=== PATIENT | female | born 1990 | race African-American/Black ===

== ENCOUNTER 2016-08-26 12:15 | Inpatient (IN) ==
[2016-08-26] MEDS ORDERED: ONDANSETRON 4 MG/2 ML VIAL IV PRN ×2 (12:32→21:52)
[2016-08-26] MEDS ORDERED: BUTORPHANOL 2 MG/ML VIAL IV PRN (12:32)
[2016-08-26] MEDS ORDERED: MEPERIDINE 50 MG/1 ML VIAL IV PRN (12:32)
[2016-08-26] MEDS: LACTATED RINGERS 1,000 ML IV SCH ×2 (12:45→15:20)
[2016-08-26 12:52] LABS: Basophils % 0.4 % (0.0-0.8); Hematocrit 38.4 VOL% (35.7-47.0); Hemoglobin 12.6 GM/DL (12.0-16.0); Immature Granulocytes % 0.7 %; Immature Granulocytes Absolute 0.05 #; Lymphocytes # 2.4 10*3/uL (1.4-4.0); Lymphocytes % 31.6 % (21.3-54.2); Mean Corpuscular HGB Conc 32.8 GM/DL (32-36); Mean Corpuscular Hemoglobin 30 PG (27-34); Mean Corpuscular Volume 91.4 FL (87-102); Mean Platelet Volume 13.1 FL (9.6-12.0); Monocytes # 0.8 10*3/uL (0.11-0.8); Monocytes % 10.4 % (1.7-12.7); Neutrophils # 4.3 10*3/uL (1.4-7.4); Neutrophils % 56.9 % (38.7-73.9); Platelet Count 141 T/CUMM (130-400); Red Cell Distribution Width 15.5 % (9.3-17.3); White Blood Count 7.5 T/CUMM (4-12)
[2016-08-26 13:04] LABS: INR 0.9; PT Patient Result 9.7 SECS; Partial Thromboplastin Time 32.8 SECS (0-40)
[2016-08-26 13:31] LABS: Alanine Aminotransferase 20 U/L (13-56); Albumin 2.2 G/DL (3.4-5.0); Alkaline Phosphatase 252 U/L (45-117); Aspartate Amino Transferase 30 U/L (0-37); Bilirubin,Total < 0.39 MG/DL (0.2-1.0); Blood Urea Nitrogen 9 MG/DL (7-18); Calcium 8.6 MG/DL (8.5-10.1); Glucose 68 MG/DL (74-106); Osmolality,Calculated 284.7 MOS/KG (273-304); Potassium 4.9 MMOL/L (3.5-5.1); Sodium 145 MMOL/L (136-145); Total Protein 5.9 G/DL (6.4-8.3)
[2016-08-26 13:41] LABS: Apearance,Urine CLEAR (Clear); Bacteria,Urine Occasional /HPF (Few); Bilirubin,Urine Negative (Negative); Blood, Urine Small mg/dL (Negative); Glucose,Urine (UA) Negative (Negative); Hyaline Casts,Urine 3 /LPF (0-3); Ketones,Urine Negative (Negative); Nitrite,Urine Negative (Negative); Protein,Urine 100 MG/DL; RBC,Urine <1 /HPF (0-4); Squamous Epithelial Cell,Urine Occasional /HPF (0-10); Urine Color Straw (Yellow); Urine Specific Gravity 1.003 (1.001-1.035); Urine Urobilinogen < 2.0 EU/DL (0.2-1.0); WBC,Urine 1 /HPF (0-6)
[2016-08-26] MEDS ORDERED: AMPICILLIN INJ 2,000 MG in SODIUM CHLORIDE 0.9% 100 ML IV ONE (13:45)
[2016-08-26] MEDS: hydrALAZINE 20 MG/1 ML VIAL IV SCH ×2 (13:54→14:10)
[2016-08-26] MEDS ORDERED: FAMOTIDINE 20 MG/2 ML VIAL IV ONE (13:59)
[2016-08-26] MEDS ORDERED: CITRIC ACID/SODIUM CITRATE 30 ML UDCUP PO ONE (13:59)
[2016-08-26] MEDS ORDERED: PROMETHAZINE 25 MG/1 ML VIAL IM ONE (13:59)
[2016-08-26] MEDS ORDERED: ONDANSETRON 4 MG/2 ML VIAL IV ONE (13:59)
[2016-08-26] MEDS ORDERED: diphenhydrAMINE 50 MG/1 ML VIAL IV PRN (13:59)
[2016-08-26] MEDS ORDERED: fentaNYL 2 MCG/ROPIV 0.2% EPID 150 ML EPIDURAL SCH (13:59)
[2016-08-26] MEDS ORDERED: hydrOXYzine HCL 25 MG/1 ML VIAL IM PRN (13:59)
[2016-08-26] MEDS ORDERED: ePHEDrine 50 MG/ML AMP IV PRN (13:59)
[2016-08-26] MEDS ORDERED: OXYTOCIN/LR 20 UNIT/1,000 ML BAG IV SCH (14:00)
[2016-08-26] MEDS ORDERED: ePHEDrine 50 MG/ML AMP ONE (15:14)
--- NOTE | 2016-08-26 17:11 | OB/GYN History & Physical ---
History of Present Illness Chief complaint: In for SROM and preeclampsia History of present illness: Ms. Taveras is a 26 year old female who is a primigravida. Her ELIZABETH is 09/23/16 for an estimated gestational age of 36 weeks. The patient presented to the labor department after visit for her routine appointment. At that appointment the patient was found to be preeclamptic with 2-3+ edema and 3+ protein in her urine. She was also complaining of leakage of fluid. Upon exam the patient was noted to be 3 cm dilated with leakage of fluid noted. The patient was sent to the labor department for management of PIH and spontaneous rupture membranes at 36 weeks. The risk and benefits of been thoroughly discussed with this patient significant other and plan care has been discussed with Dr. Thompson in all parties are in agreement with plan. The patient received her care at the [facility] she had an episode of missed appointments due to some insurance problems, but after that was resolved the patient resumed routine care and accidents at this point her course was uneventful. Home Medications Medication Instructions Recorded Confirmed Type Multivitamin () [ 1 tablet PO DAILY 08/26/16 08/26/16 History Vitamin] Allergies Allergy/AdvReac Type Severity Reaction Status Date / Time No Known Allergies Allergy Verified 02/14/15 09:03 12 point system: reviewed and no additional remarkable complaints except as stated (SROM, proteinuria, pitting edema) Medical,Surgical,& Family Hx - Medical History Medical History: noncontributory Reproductive: History of: Sexually Transmitted Disorders (CHLYMDYIA) No history of: Ectopic , Complication - Surgical History Reproductive Surgeries: Patient denies;: Breast Surgery, Section, Dilation and Curettage, Gynecologic Surgery, Hysterectomy, Tubal Ligation Orthopedic Surgeries: Surgical HX of;: Orthopedic Surgery (Knee surgery) - Family History Family History: Reports;: Family Hypertension (MOTHER AND SISTERS) - Social History Smoking Status: Never smoker Frequency of Alcohol Use: None Type of Drug Use: None Marital Status: Single Lives With:: Significant Other Functional capacity: independent ambulation 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
[2016-08-26 17:54] LABS: Apearance,Urine CLEAR (Clear); Bilirubin,Urine Negative (Negative); Blood, Urine Negative (Negative); Glucose,Urine (UA) Negative (Negative); Hyaline Casts,Urine 1 /LPF (0-3); Ketones,Urine Negative (Negative); Nitrite,Urine Negative (Negative); Protein,Urine 100 MG/DL; RBC,Urine 2 /HPF (0-4); Urine Color Yellow (Yellow); Urine Specific Gravity 1.006 (1.001-1.035); Urine Urobilinogen < 2.0 EU/DL (0.2-1.0); WBC,Urine 1 /HPF (0-6)
[2016-08-26] MEDS ORDERED: MAGNESIUM SULF RIDER 4 GM in PREMIX 1 EACH IV ONE (18:27)
[2016-08-26] MEDS ORDERED: MAGNESIUM SULF DRIP 40 GM/1,000 ML ML IV ONE (18:28)
[2016-08-26] MEDS ORDERED: MAGNESIUM SULF RIDER 100 ML IV ONE (18:28)
[2016-08-26] MEDS ORDERED: MAGNESIUM SULF DRIP 40 GM/1,000 ML ML IV SCH (18:30)
[2016-08-26] MEDS ORDERED: AMPICILLIN INJ 1,000 MG in SODIUM CHLORIDE 0.9% 100 ML IV SCH (18:30)
[2016-08-26] MEDS ORDERED: hydrALAZINE 20 MG/1 ML VIAL IV ONE (18:37)
[2016-08-26] MEDS ORDERED: hydrALAZINE 20 MG/1 ML VIAL ONE (18:38)
--- NOTE | 2016-08-26 21:51 | Event Note ---
Delivery note Severe preeclampsia IV Apresoline IV magnesium sulfate IV ampicillin Epidural anesthetic Spontaneous rupture membranes prior to being admitted heart tones category 1 External monitoring Complete at 2034 p.m. Stage II LML episiotomy, small Vacuum extraction 1 at +2 station secondary to maternal exhaustion Delivery of a female infant, 5 lbs. 4 oz. Apgars were 8 at 1 minute 9 at 5 minutes Cord blood and cord gas obtained Stage III 3 cord vessels Placenta delivered without any complications Blood loss is 200 mL Episiotomy repair with 2-0 Vicryl and 3-0 chromic Mother and stable
[2016-08-26] MEDS ORDERED: MEASLES/MUMPS/RUBELLA VACCINE 0.5 ML VIAL SUBCUT ONE (21:52)
[2016-08-26] MEDS ORDERED: OXYTOCIN/LR 20 UNIT/1,000 ML BAG IV ONE (21:52)
[2016-08-26] MEDS ORDERED: BENZOCAINE 20%/MENTHOL 0.5% SPRAY 56 GM CAN TOP PRN (21:52)
[2016-08-26] MEDS ORDERED: LANOLIN 50% CREAM 0.3 OZ TUBE TOP PRN (21:52)
[2016-08-26] MEDS ORDERED: RHO(D) IMMUNE GLOBULIN 300 MCG SYRINGE IM ONE (21:52)
[2016-08-26] MEDS ORDERED: WITCH HAZEL PADS 100/JAR TOP PRN (21:52)
[2016-08-26] MEDS ORDERED: HYDROCORTISONE 2.5% RECTAL CREAM 30 GM TUBE TOP PRN (21:52)
[2016-08-26] MEDS ORDERED: oxyCODONE/ACETAMINOPHEN 5-325 MG TABLET PO PRN (21:52)
[2016-08-26] MEDS ORDERED: ACETAMINOPHEN 325 MG TABLET PO PRN (21:52)
[2016-08-26] MEDS ORDERED: BISACODYL 10 MG SUPP RECTAL PRN (21:52)
[2016-08-26] MEDS ORDERED: DIPH/TET/ACEL PERT BOOSTER VACCINE 0.5 ML VIAL IM ONE (21:52)
[2016-08-26] MEDS: AMPICILLIN INJ 2,000 MG in SODIUM CHLORIDE 0.9% 100 ML IV SCH (22:45)
[2016-08-26] MEDS: FUROSEMIDE 40 MG/4 ML VIAL IV SCH (22:47)
[2016-08-27] MEDS ORDERED: hydrALAZINE 20 MG/1 ML VIAL IV ONE ×2 (00:40→01:00)
[2016-08-27 00:56] LABS: Basophils # 0.1 10*3/uL (0.0-0.2); Basophils % 0.3 % (0.0-0.8); Hematocrit 38.7 VOL% (35.7-47.0); Hemoglobin 12.9 GM/DL (12.0-16.0); Immature Granulocytes % 0.7 %; Immature Granulocytes Absolute 0.12 #; Lymphocytes # 1.3 10*3/uL (1.4-4.0); Lymphocytes % 7.5 % (21.3-54.2); Mean Corpuscular HGB Conc 33.3 GM/DL (32-36); Mean Corpuscular Hemoglobin 30 PG (27-34); Mean Corpuscular Volume 91.1 FL (87-102); Mean Platelet Volume 13.4 FL (9.6-12.0); Monocytes # 1.4 10*3/uL (0.11-0.8); Monocytes % 8.2 % (1.7-12.7); Neutrophils # 13.9 10*3/uL (1.4-7.4); Neutrophils % 83.3 % (38.7-73.9); Platelet Count 146 T/CUMM (130-400); Red Blood Count 4.25 MC/CUMM (3.8-5.5); Red Cell Distribution Width 15.6 % (9.3-17.3); White Blood Count 16.7 T/CUMM (4-12)
[2016-08-27] MEDS: oxyCODONE/ACETAMINOPHEN 5-325 MG TABLET PO PRN ×2 (02:36→07:46)
[2016-08-27] MEDS: FUROSEMIDE 40 MG/4 ML VIAL IV SCH ×2 (04:31→11:19)
[2016-08-27] MEDS: AMPICILLIN INJ 2,000 MG in SODIUM CHLORIDE 0.9% 100 ML IV SCH ×2 (04:35→11:17)
[2016-08-27 07:53] LABS: Basophils % 0.2 % (0.0-0.8); Hematocrit 39.5 VOL% (35.7-47.0); Hemoglobin 13.2 GM/DL (12.0-16.0); Immature Granulocytes % 0.4 %; Immature Granulocytes Absolute 0.08 #; Lymphocytes # 1.5 10*3/uL (1.4-4.0); Lymphocytes % 8.4 % (21.3-54.2); Mean Corpuscular HGB Conc 33.4 GM/DL (32-36); Mean Corpuscular Hemoglobin 31 PG (27-34); Mean Corpuscular Volume 91.2 FL (87-102); Mean Platelet Volume 13.1 FL (9.6-12.0); Monocytes # 1.2 10*3/uL (0.11-0.8); Monocytes % 6.8 % (1.7-12.7); Neutrophils # 15.2 10*3/uL (1.4-7.4); Neutrophils % 84.2 % (38.7-73.9); Platelet Count 157 T/CUMM (130-400); Red Blood Count 4.33 MC/CUMM (3.8-5.5); Red Cell Distribution Width 15.6 % (9.3-17.3); White Blood Count 18.1 T/CUMM (4-12)
[2016-08-27 08:23] LABS: Albumin 1.9 G/DL (3.4-5.0); Bilirubin,Total 0.4 MG/DL (0.2-1.0); Calcium 7.7 MG/DL (8.5-10.1); Osmolality,Calculated 278.3 MOS/KG (273-304); Total Protein 5.8 G/DL (6.4-8.3)
[2016-08-27] MEDS: DOCUSATE SODIUM 100 MG CAPSULE PO SCH (08:53)
--- NOTE | 2016-08-27 09:45 | OB/GYN Progress Note ---
Assessment and Plan (1) Premature rupture of membranes Status: Acute Assessment and plan: Admit IV fluids IV abx prophlactic Epidural IUPD Anticipate Current Visit: Yes (2) Preeclampsia Status: Acute Current Visit: Yes (3) Vaginal delivery Status: Acute Assessment and plan: Initiate routine orders. 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 Bonding well with infant. 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 - Constitutional Vitals: Vital Signs Temp Pulse Resp BP 08/27/16 07:56 97.8 F 116 H 21 141/94 08/27/16 04:00 97.9 F 110 H 18 139/91 08/27/16 02:16 98.6 F 131 H 20 146/91 08/27/16 01:16 98.3 F 118 H 18 160/103 08/27/16 00:16 98.4 F 106 H 18 158/108 08/26/16 23:46 106 H 18 158/108 08/26/16 23:16 98.7 F 102 H 20 159/97 08/26/16 20:00 98.1 F 118 H 20 122/75 General appearance: no acute distress - Antepartum / Post Post Exam Breast: bilateral: normal Abdomen obstetrics: Present: bowel sounds normal Vagina: Present: normal moisture, discharge (moderate lochia rubra) Uterus exam: Present: enlarged (FF ML) - Respiratory Respiratory exam: Present: clear to auscultation bilaterally - Cardiovascular Cardiovascular exam: Present: regular rate and rhythm - GI/Abdominal GI/Abdominal exam: Present: normal bowel sounds, soft - Extremities Exam Extremities exam: Present: edema (2+ edema) - Neurological Exam Neurological exam: Present: alert, oriented X3 - Psychiatric Psychiatric exam: Present: normal affect, normal mood - Skin Skin exam: Present: normal color, warm Results - Labs CBC & BMP: 08/27/16 07:40 08/27/16 07:40
[2016-08-27] MEDS ORDERED: hydrALAZINE 20 MG/1 ML VIAL IV PRN (11:46)
[2016-08-27] MEDS ORDERED: hydrALAZINE 20 MG/1 ML VIAL ONE (12:17)
[2016-08-27] MEDS: IBUPROFEN 800 MG TABLET PO PRN (19:14)
[2016-08-28] MEDS: DOCUSATE SODIUM 100 MG CAPSULE PO SCH ×3 (00:43→21:23)
[2016-08-28 05:41] LABS: Albumin 2.1 G/DL (3.4-5.0); Bilirubin,Total 0.4 MG/DL (0.2-1.0); Calcium 7.7 MG/DL (8.5-10.1); Osmolality,Calculated 272.7 MOS/KG (273-304); Potassium 4.3 MMOL/L (3.5-5.1); Total Protein 5.7 G/DL (6.4-8.3)
[2016-08-28] MEDS: IBUPROFEN 800 MG TABLET PO PRN (08:02)
--- NOTE | 2016-08-28 09:41 | OB/GYN Progress Note ---
Assessment and Plan (1) Premature rupture of membranes Status: Acute Assessment and plan: Admit IV fluids IV abx prophlactic Epidural IUPD Anticipate Current Visit: Yes (2) Preeclampsia Status: Acute Current Visit: Yes (3) Vaginal delivery Status: Acute Assessment and plan: Initiate routine orders. 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 No SOB or headaches. 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 - Constitutional Vitals: Vital Signs Temp Pulse Resp BP 08/28/16 08:00 98.3 F 83 20 125/91 08/28/16 06:00 16 08/28/16 04:00 98.7 F 89 18 125/86 08/28/16 02:00 18 08/28/16 00:00 97.1 F L 87 18 118/78 08/27/16 19:56 98.8 F 105 H 20 116/68 08/27/16 16:00 99.3 F 108 H 22 122/93 08/27/16 12:00 98.3 F 109 H 19 111/67 General appearance: no acute distress - Antepartum / Post Post Exam Breast: bilateral: normal Abdomen obstetrics: Present: bowel sounds normal Vagina: Present: discharge (light lochia rubra) Uterus exam: Present: enlarged (FF ml) Anus/Rectum: Present: normal perianal skin - Respiratory Respiratory exam: Present: clear to auscultation bilaterally - Cardiovascular Cardiovascular exam: Present: regular rate and rhythm - GI/Abdominal GI/Abdominal exam: Present: normal bowel sounds, soft - Extremities Exam Extremities exam: Present: normal inspection - Neurological Exam Neurological exam: Present: alert, oriented X3 - Psychiatric Psychiatric exam: Present: normal affect, normal mood - Skin Skin exam: Present: normal color, warm Results - Labs CBC & BMP: 08/27/16 07:40 08/28/16 04:45
--- NOTE | 2016-08-28 10:13 | Progress Note ---
Family Medicine PN Sub Interval history: day #1 Status post vaginal with severe preeclampsia Vital signs of been stable, blood pressures 125/87 which is well within normal limits Her output is been excellent Her uterus is firm, extremities looks a lot better 1+ edema no evidence of clonus negative Homans. Electrolytes within normal limits, potassium is 4.3 after several doses of Lasix. We'll continue to observe observed very closely, possible discharge in a.m. or in 48 hours. Exam (Progress Note) - Constitutional Vitals: Period Temp Pulse Resp BP Sys/Romero Pulse Ox Last 24 Hr 97.1 F-99.3 F 83-109 16-22 111-125/67-93 Results - Labs CBC & BMP: 08/27/16 07:40 08/28/16 04:45 Quality Measures - VTE Contraindication to Pharmacological VTE Prophylaxis: Clinical assessment deems Pt at low risk, no prophalaxis needed
--- NOTE | 2016-08-28 12:21 | Pathology Report from [facility] ---
ACCESSION # : [id number] PATIENT NAME : Mohamud Liao ORDERING DR : BHUPENDRA MUSTAFA MD CLINICAL HX: IUP @ 36 wks gestation, preeclampsia POST-OP DX: Same SPECIMEN INFO: Placenta GROSS DESCRIPTION: Received fresh labeled with the patient's name and consists of a 392 gram placenta measuring 17.1 x 15.9 x 3.0 cm. membranes are opaque pink-parrish with an area of clotted blood present. Also noted is a 6.0 x 4.5 cm possible implanted chorionic villi within the membranes. The umbilical cord is pericentrally inserted, contains three vessels and is 26.2 cm. surface is blue-oliver with possible area of subchorionic hemorrhage. The maternal surface is hemorrhagic with moderately disrupted cotyledons and clotted blood present. No gross abnormalities upon sectioning. Sections submitted: A membranes and cord which includes area of possible implanted chorionic villi, B and maternal surfaces. DIAGNOSIS FOR MOHAMUD LIAO: PLACENTA, MEMBRANES, UMBILICAL CORD: Focal placental infarction with dystrophic calcification, mild intervillous blood. Tri -vessel umbilical cord, pericentrally inserted. Membranes with focal chronic inflammation and attached blood. SERVICE DATE: 08/27/2016 REPORT DATE: 08/28/2016 PATHOLOGIST: Patti Saunders
[2016-08-28] MEDS: oxyCODONE/ACETAMINOPHEN 5-325 MG TABLET PO PRN (19:40)
[2016-08-29] MEDS: oxyCODONE/ACETAMINOPHEN 5-325 MG TABLET PO PRN ×3 (07:45→20:35)
--- NOTE | 2016-08-29 09:23 | OB/GYN Progress Note ---
Assessment and Plan (1) Premature rupture of membranes Status: Acute Assessment and plan: Admit IV fluids IV abx prophlactic Epidural IUPD Anticipate Current Visit: Yes (2) Preeclampsia Status: Acute Current Visit: Yes (3) Vaginal delivery Status: Acute Assessment and plan: Initiate routine orders. 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 No complaints. 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 - Constitutional Vitals: Vital Signs Temp Pulse Resp BP Pulse Ox 08/29/16 07:35 97.8 F 83 18 135/99 100 08/29/16 04:00 98.8 F 81 18 123/75 97 08/29/16 02:00 18 08/29/16 00:00 98.3 F 70 18 135/86 98 08/28/16 20:00 99 F 78 18 126/86 99 08/28/16 15:43 98.8 F 84 18 148/88 98 08/28/16 14:30 98.8 F 88 20 146/98 98 08/28/16 12:00 98.7 F 75 21 127/82 General appearance: no acute distress - Antepartum / Post Post Exam Breast: bilateral: normal Abdomen obstetrics: Present: bowel sounds normal Vagina: Present: normal moisture Uterus exam: Present: enlarged (ff ml) Anus/Rectum: Present: normal perianal skin - Respiratory Respiratory exam: Present: clear to auscultation bilaterally - Cardiovascular Cardiovascular exam: Present: regular rate and rhythm - GI/Abdominal GI/Abdominal exam: Present: normal bowel sounds, soft - Extremities Exam Extremities exam: Present: normal inspection - Back Exam Back exam: Present: normal inspection - Neurological Exam Neurological exam: Present: alert, oriented X3 - Psychiatric Psychiatric exam: Present: normal affect, normal mood - Skin Skin exam: Present: normal color, warm Results - Labs CBC & BMP: 08/27/16 07:40 08/28/16 04:45
[2016-08-29] MEDS: DOCUSATE SODIUM 100 MG CAPSULE PO SCH ×2 (10:36→22:24)
[2016-08-29] MEDS ORDERED: hydrALAZINE 20 MG/1 ML VIAL IV ONE (18:14)
[2016-08-29] MEDS ORDERED: ZALEPLON 5 MG CAPSULE PO PRN (20:11)
[2016-08-30 07:17] VITALS: BP 137/79
--- NOTE | 2016-08-30 09:48 | Discharge Summary ---
Hospital Course - Hospital Course Hospital Course: Postop day #4 Status post vaginal with severe preeclampsia, and prematurity. Postoperative course is been complicated by a labile blood pressure. Patient had received several doses of Apresoline in addition to a daily dose of Procardia 30 mg XL. Presently she is doing well blood pressure is stable with 60 mg of Procardia. She denies shortness of breath chest pain palpitations nor is any excessive bleeding. She still has trace edema in the lower extremities where she did receive Lasix IV during her hospitalization. Patient will be discharged on Procardia 60 mg XL and follow my office in 2 weeks for further visit. Discharge Plan - Discharge Data Condition at Discharge: Stable Discharge Diet: advance to your usual diet Activity: increase activity as tolerated Hygiene: may shower Weight Bearing at Discharge: weight bear as tolerated Driving: no restrictions Contact your physician if you experience:: Shortness of breath, Bleeding - Discharge Medications New Ibuprofen Tab [Motrin Tab] 800 mg PO Q6H PRN #30 tablet PRN Reason: Pain Moderate (4-7) oxyCODONE/ACETAMINOPHEN 5-325 [Percocet 5-325] 1 tablet PO Q6H PRN #20 tablet PRN Reason: Pain Severe (8-10) NIFEdipine XL TAB [Procardia Xl] 60 mg PO DAILY #30 tablet No Action Multivitamin () [ Vitamin] 1 tablet PO DAILY - Follow Up or Referral - Forms/Instructions Exam - Constitutional Vitals: Period Temp Pulse Resp BP Sys/Romero Pulse Ox Last 24 Hr 96.7 F-98.8 F 72-93 16-18 133-163/79-106 96-100 DS: Provider Date of admission: 08/26/16 12:16 Primary care physician: Loretta Thompson MD Attending physician on admission: Loretta Thompson MD Consults: 08/26/16 21:52 Consult to Garbage Pick Up Man [CONS] Routine Consult Garbage Pick Up Man: Breast Feeding Discharging clinician: Loretta Thompson MD
[2016-08-30] MEDS: DOCUSATE SODIUM 100 MG CAPSULE PO SCH (09:53)
== END 2016-08-30 12:35 | disposition home or self-care (01) | DRG 775 ==
LOC: N.LDOUT 12:15 → N.LD 12:16 → N.OB 08-28 14:38
PROVIDERS: ADMIT Obstetrics & Gynecology; ATTEND Obstetrics & Gynecology